=== PATIENT | female | born 1990 | race Caucasian/White ===

== ENCOUNTER 2022-06-18 12:45 | Emergency (ER) | payer OTHER ==
[~2022-06-18 12:45] MED LIST: IBUPROFEN800 MG PO; MOTRIN600 MG PO; NORCO 5-325 TA1 EACH PO; ROBAXIN500 MG PO; ULTRAM50 MG PO; ZOFRAN4 MG PO; ZOLOFT50 MG PO
== END 2022-06-18 14:40 | disposition left against medical advice (07) ==
LOC: FER 12:45
DX: U07.1 COVID-19 (principal); Z53.29 Procedure and treatment not carried out because of patient's decision for other reasons; Z28.310 Unvaccinated for COVID-19
CPT/HCPCS: 99281; U0002